=== PATIENT | female | born 1985 | race Caucasian/White ===

== ENCOUNTER 2016-11-24 05:39 | Inpatient (IN) | payer OTHER ==
[~2016-11-24] VITALS: Ht 152.4 cm; Wt 74.8 kg
[~2016-11-24 05:39] MED LIST: CITRIC ACID/SODIUM CITRATE 30 ML SOLUTION UDCUP PO ONE; DSS100 PO; FERR-89 PO; IBUP-2071 PO; METOCLOPRAMIDE HCL 5 MG/ML 2 ML VIAL IVP ONE; PERCT PO; PNV1TABL54 PO; RINGERS SOLUTION,LACTATED 1,000 ML IV ONE
[2016-11-24 05:47] VITALS: BP 133/80
[2016-11-24 06:29] LABS: BASOPHILS % (AUTO) 0.5 % (0.0-2.0); EOSINOPHILS % (AUTO) 1.4 % (1.0-6.0); HEMATOCRIT 31.6 % (36-46); HEMOGLOBIN 10.6 g/dL (12.0-16.0); LYMPHOCYTES # (AUTO) 2.5 K/uL (1.0-4.8); LYMPHOCYTES % (AUTO) 36.2 % (22.0-44.0); MEAN CORPUSCULAR HEMOGLOBIN 26.8 pg (26.0-34.0); MEAN CORPUSCULAR HGB CONC 33.6 G/dL (31.0-37.0); MEAN CORPUSCULAR VOLUME 80 fL (80-100); MONOCYTES # (AUTO) 0.6 K/uL (0.1-1.0); MONOCYTES % (AUTO) 8.7 % (2.0-9.0); NEUTROPHILS # (AUTO) 3.7 K/uL (1.8-7.7); NEUTROPHILS % (AUTO) 53.2 % (40.0-70.0); PLATELET COUNT (AUTO) 195 K/uL (150-450); RED BLOOD CELL COUNT(AUTO) 3.95 MIL/uL (4.00-5.20); RED CELL DISTRIBUTION WIDTH 15.3 % (11.5-14.5); WHITE BLOOD COUNT (AUTO) 6.9 K/uL (4.5-11.0)
[2016-11-24] MEDS ORDERED: MIDAZOLAM HCL 2 MG/2 ML VIAL ONE (07:34)
[2016-11-24] MEDS ORDERED: FentaNYL CITRATE-PF 100 MCG/2 ML VIAL ONE (07:34)
[2016-11-24] MEDS ORDERED: MORPHINE SULFATE/PF 0.5 MG/ML 10 ML AMP ONE (07:34)
[2016-11-24] MEDS ORDERED: GUM MASTIC/STORAX/MSAL/ALCOHOL LIQUID 0.67 ML VIAL TP ONE (07:35)
[2016-11-24] MEDS ORDERED: METHYLERGONOVINE MALEATE 0.2 MG/ML VIAL ONE (07:42)
[2016-11-24] MEDS ORDERED: ONDANSETRON HCL 4 MG/2 ML VIAL IVP PRN ×2 (08:45)
[2016-11-24] MEDS ORDERED: FentaNYL CITRATE-PF 100 MCG/2 ML VIAL IVP PRN ×2 (08:45)
[2016-11-24] MEDS ORDERED: MORPHINE SULFATE 4 MG/ML SYRINGE IVP PRN (08:45)
[2016-11-24] MEDS ORDERED: MORPHINE SULFATE 2 MG/ML SYRINGE IVP PRN (08:45)
[2016-11-24] MEDS: OXYGEN THERAPY IH SCH ×4 (08:45→20:00)
[2016-11-24] MEDS ORDERED: DiphenhydrAMINE HCL 50 MG/ML VIAL IVP PRN ×2 (08:45)
[2016-11-24] MEDS ORDERED: ACETAMINOPHEN 1000 MG/ISO-OSM 100 ML IV ONE (09:12)
[2016-11-24] MEDS: ACETAMINOPHEN 1000 MG/ISO-OSM 100 ML IV SCH ×2 (09:16→16:47)
[2016-11-24] MEDS ORDERED: LANOLIN 7 GM OINTMENT TP PRN (10:45)
[2016-11-24] MEDS: RINGERS SOLUTION,LACTATED 1,000 ML IV SCH ×2 (14:24→23:21)
[2016-11-24] MEDS: MAGNESIUM HYDROXIDE SUSPENSION 30 ML UDCUP PO SCH (20:54)
[2016-11-24] MEDS: NALBUPHINE HCL 10 MG/ML VIAL IVP SCH (20:54)
[2016-11-24] MEDS ORDERED: METHYLERGONOVINE MALEATE 0.2 MG/ML VIAL IM ONE (23:45)
[2016-11-25] MEDS ORDERED: MISOPROSTOL 100 MCG TABLET PO ONE (00:30)
[2016-11-25] MEDS ORDERED: EPHEDrine SULFATE 50 MG/ML VIAL IM ONE (01:58)
[2016-11-25] MEDS ORDERED: OXYTOCIN 10 UNITS/ML VIAL IM ONE (01:58)
[2016-11-25] MEDS ORDERED: ONDANSETRON HCL 4 MG/2 ML VIAL IVP ONE (01:58)
[2016-11-25] MEDS ORDERED: DEXAMETHASONE SOD PHOS 4 MG/ML VIAL IVP ONE (01:58)
[2016-11-25] MEDS: ACETAMINOPHEN 1000 MG/ISO-OSM 100 ML IV SCH (02:15)
[2016-11-25] MEDS: NALBUPHINE HCL 10 MG/ML VIAL IVP SCH ×2 (03:05→09:04)
[2016-11-25 06:47] LABS: BASOPHILS % (AUTO) 0.2 % (0.0-2.0); EOSINOPHILS % (AUTO) 0 % (1.0-6.0); HEMATOCRIT 24.6 % (36-46); HEMOGLOBIN 8.2 g/dL (12.0-16.0); LYMPHOCYTES # (AUTO) 2.2 K/uL (1.0-4.8); LYMPHOCYTES % (AUTO) 18.7 % (22.0-44.0); MEAN CORPUSCULAR HEMOGLOBIN 27.1 pg (26.0-34.0); MEAN CORPUSCULAR HGB CONC 33.5 G/dL (31.0-37.0); MEAN CORPUSCULAR VOLUME 81 fL (80-100); MONOCYTES # (AUTO) 0.8 K/uL (0.1-1.0); MONOCYTES % (AUTO) 6.4 % (2.0-9.0); NEUTROPHILS # (AUTO) 8.8 K/uL (1.8-7.7); NEUTROPHILS % (AUTO) 74.7 % (40.0-70.0); RED BLOOD CELL COUNT(AUTO) 3.04 MIL/uL (4.00-5.20); RED CELL DISTRIBUTION WIDTH 15.1 % (11.5-14.5); WHITE BLOOD COUNT (AUTO) 11.8 K/uL (4.5-11.0)
[2016-11-25] MEDS: MAGNESIUM HYDROXIDE SUSPENSION 30 ML UDCUP PO SCH ×2 (09:00→20:14)
[2016-11-25] MEDS ORDERED: SIMETHICONE 80 MG CHEWABLE TABLET CHEW SCH (09:00)
[2016-11-25] MEDS: SOD FERRIC GLUC COMPLX/SUCROSE 125 MG in SODIUM CHLORIDE 0.9% 100 ML IV SCH (11:57)
[2016-11-25] MEDS: OxyCODONE HCL/ACETAMINOPHEN 5-325 MG TABLET PO PRN ×2 (12:21→19:02)
[2016-11-25] MEDS: SIMETHICONE 80 MG CHEWABLE TABLET CHEW SCH ×2 (17:35→20:15)
[2016-11-26] MEDS: OxyCODONE HCL/ACETAMINOPHEN 5-325 MG TABLET PO PRN ×3 (01:52→16:12)
[2016-11-26] MEDS: SIMETHICONE 80 MG CHEWABLE TABLET CHEW SCH ×3 (08:47→20:35)
[2016-11-26] MEDS: SOD FERRIC GLUC COMPLX/SUCROSE 125 MG in SODIUM CHLORIDE 0.9% 100 ML IV SCH (11:37)
[2016-11-26] MEDS: MAGNESIUM HYDROXIDE SUSPENSION 30 ML UDCUP PO SCH (20:35)
[2016-11-26] MEDS: OxyCODONE HCL/ACETAMINOPHEN 5-325 MG TABLET PO SCH (23:11)
[2016-11-27] MEDS: OxyCODONE HCL/ACETAMINOPHEN 5-325 MG TABLET PO SCH (05:47)
[2016-11-27 08:23] LABS: BASOPHILS # (AUTO) 0.03 K/uL (0.00-0.20); BASOPHILS % (AUTO) 0.3 % (0.0-2.0); EOSINOPHILS # (AUTO) 0.15 K/uL (0.00-0.70); EOSINOPHILS % (AUTO) 1.73 % (1.0-6.0); HEMATOCRIT 23.4 % (36-46); HEMOGLOBIN 7.8 g/dL (12.0-16.0); LYMPHOCYTES # (AUTO) 2.8 K/uL (1.0-4.8); LYMPHOCYTES % (AUTO) 32.1 % (22.0-44.0); MEAN CORPUSCULAR HEMOGLOBIN 27.3 pg (26.0-34.0); MEAN CORPUSCULAR HGB CONC 33.5 G/dL (31.0-37.0); MEAN CORPUSCULAR VOLUME 81 fL (80-100); MONOCYTES # (AUTO) 0.5 K/uL (0.1-1.0); MONOCYTES % (AUTO) 5.7 % (2.0-9.0); NEUTROPHILS # (AUTO) 5.3 K/uL (1.8-7.7); NEUTROPHILS % (AUTO) 60.2 % (40.0-70.0); RED BLOOD CELL COUNT(AUTO) 2.87 MIL/uL (4.00-5.20); RED CELL DISTRIBUTION WIDTH 16.3 % (11.5-14.5); WHITE BLOOD COUNT (AUTO) 8.7 K/uL (4.5-11.0)
[2016-11-27] MEDS: SIMETHICONE 80 MG CHEWABLE TABLET CHEW SCH (08:26)
[2016-11-27] MEDS: MAGNESIUM HYDROXIDE SUSPENSION 30 ML UDCUP PO SCH (08:27)
[2016-11-27] MEDS: SOD FERRIC GLUC COMPLX/SUCROSE 125 MG in SODIUM CHLORIDE 0.9% 100 ML IV SCH (11:21)
== END 2016-11-27 13:40 | disposition home or self-care (01) | DRG 766 ==
LOC: 4S 05:39 → PREOBSVTOIN 12-04 05:48
PROVIDERS: ADMIT Obstetrics & Gynecology; ATTEND Obstetrics & Gynecology
PROC: 10D00Z1 Extraction of Products of Conception, Low, Open Approach (ICD-10-PCS; principal; 2016-11-24)
PROC: 0UB70ZZ Excision of Bilateral Fallopian Tubes, Open Approach (ICD-10-PCS; 2016-11-24)
DX: O34.211 Maternal care for low transverse scar from previous cesarean delivery (principal); Z37.0 Single live birth; Z3A.39 39 weeks gestation of pregnancy
CPT/HCPCS: 86850; 86900; 86901; 87081; 88302; J0131; J0690; J1100; J2210; J2250; J2274; J2300; J2405; J2590; J2765; J2916; J3010; J3490; J7050; J7120